=== PATIENT | female | born 1970 | race Hispanic/Latino ===

== ENCOUNTER 2016-03-27 20:18 | Emergency (ER) | payer SELFPAY ==
[~2016-03-27] VITALS: Ht 154.9 cm; Wt 63.6 kg
[~2016-03-27 20:18] MED LIST: PREN1TAB47; TYL325
[2016-03-27 20:28] VITALS: BP 115/84; PULSE 86; RESP 16; O2SAT 99
--- NOTE | 2016-03-27 22:12 | ED.REPORT ---
HPI-Headache Date of Service Mar 27, 2016 ED Provider: Gurjit Galdamez MD Patient is a 46 year old female with a history of migraines who presents to the ED complaining of a severe migraine headache which began 3 days ago. Patient reports a right-sided headache, with a throbbing burning. She states that this migraine is similar to previous migraines, however it is longer in duration. The patient is at the end of her menstrual period and states that she typically has migraines associated with her menstrual period. She reports associated nausea, dizziness, and photophobia. Patient denies numbness or weakness of her extremities. Nursing Notes Stated Complaint: HEADACHE Chief Complaint: Neuro Symptoms/ Deficits Nursing Notes Reviewed: Yes Allergies: Coded Allergies: No Known Allergies (Verified , 03/27/16) Scheduled PRN Prochlorperazine Maleate (Compazine Suppository) 25 Mg Supp.rect 25 MG RC Q8 PRN PRN For Nausea/Vomiting Sumatriptan Succinate (Imitrex) 50 Mg Tablet 50 MG PO [id number] PRN PRN migraine Miscellaneous Medications Acetaminphen-Expunged Drug, Do Not Renew! 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 Arrived By: Walk-in Sudden in Onset?: No Onset Occurred: 3 days ago Symptom Duration: Since onset Location: : Frontal right Quality: Painful Severity: Current: Severe Severity: Maximum: Severe Recent Healthcare: No recent doctor visit, No recent hospitalization Similar Sx Previous: Yes Past Medical History Past Medical History depression Reports: Migraines Past Surgical History Reports: Reports: Tubal ligation Smoking History Unknown if Ever Smoker Social History Other Social History: Good social support, Local resident Ambulatory Status Independent Review of Systems Eyes: Reports: Photophobia GI: Reports: Nausea, Denies: Vomiting Neurologic: Reports: Dizziness, Headache, Denies: Numbness, Weakness Complete sys rev & neg: except as marked. Physical Exam Initial Vital Signs Vital Signs (First) Date Time Temp Pulse Resp B/P Pulse Ox O2 Delivery O2 Flow Rate FiO2 03/27/16 20:28 36.4 86 16 115/84 99 Room Air Initial VS: Reviewed ENT: Conjunctiva normal, No scleral icterus Extremities: Vascular intact, Neuro intact Skin: Warm, Dry, No cyanosis Psychiatric: Mood/affect normal, Behavior normal, Normal thought content General/Constitutional: Awake, Alert Appearance / Presentation: Positive: Uncomfortable Head / Eyes: Normocephalic, PERRL Neck: Supple, No meningismus, Full range of motion Neurologic: Oriented X3, Speech NL, No motor deficits, No sensory deficits, CN II - XII intact, Cerebellar NL Respiratory / Chest: No respiratory distress, No stridor Cardiovascular: Heart rate NL, Regular rhythm Re-Eval/Medical Decision Med Decision/Clinical Course 46-year-old with history of migraines presents with a three-day siege of migraine. She is much improved here after standard cocktail. Her evaluation shows no evidence of significant underlying pathology, with intact neuro, and no other concerning features. She is discharged now pain free and stable condition. Source of Hx: Old records Re-Evaluation/Progress : Time of Eval: 00:30 )( Patient Status: Condition improved Re-Evaluation/Progress Note: Headache is resolved. Patient understands and agrees with the plan to be discharged home. Discharge instructions and follow-up discussed. All questions were addressed. Return to the ED warnings given. Counseled Regarding: Diagnosis, Lab results, Need for follow-up, When/why to return to ED Discharge & Departure Impression: Primary Impression: Migraine Migraine type: without aura Status migrainosus presence: with status migrainosus Intractability: not intractable Qualified Code: G43.001 - Migraine without aura, not intractable, with status migrainosus Disposition: Home Discharge Condition All VS Reviewed: Yes Condition: Stable Patient Instructions: Migraine Headache (ED) Additional Instructions: Drink plenty of clear fluids and maintain your hydration. Imitrex if needed for similar headaches in the future. Take a Compazine suppository (insert in rectum) if needed for nausea and migraine. Follow-up with your doctor in the office. Return if any immediate issues. Kylah muchos lquidos amanda y mantenga santana hidratacin. Imitrex si es necesario para julius de gideon similares en el futuro. [place] un supositorio Compazine (insertar en el recto) si es necesario para las n useas y migraas. Seguimiento con santana mdico en la oficina. Vuelva si cualquier ediciones inmediatas. Referrals: Margie Epstein (PCP) Oanh Attestation Portions of this note were transcribed by Usha Miller. I, Dr. Galdamez personally performed the history, physical exam and medical decision-making; I reviewed and confirmed the accuracy of the information in the transcribed note. Signed by: Oanh Carranza, 03/27/2016 0114 copies to: Margie Epstein Christopher W MD Mar 27, 2016 22:12 Usha Miller Mar 27, 2016 22:16
[2016-03-27] MEDS ORDERED: 0.9% Sodium Chloride 1,000 ML IV ONE (22:33)
[2016-03-27] MEDS ORDERED: Haloperidol 5 mg/mL Inj IVPUSH ONE (22:35)
[2016-03-27] MEDS ORDERED: Ondansetron 2 mg/mL 2 mL Inj IVPUSH ONE (22:35)
[2016-03-27] MEDS ORDERED: Dexamethasone 10 mg/mL Inj IVPUSH ONE (22:35)
[2016-03-28] MEDS ORDERED: SUMA50TA31 PO (00:19)
[2016-03-28] MEDS ORDERED: PROC25SU30 RC (00:21)
[2016-03-28 00:44] VITALS: BP 118/78; PULSE 86; RESP 24; O2SAT 98
== END 2016-03-28 00:45 | disposition home or self-care (01) ==
LOC: SED 20:18
DX: G43.001 Migraine without aura, not intractable, with status migrainosus (principal)
CPT/HCPCS: 96361; 96374; 96375; 99284; J1100; J1200; J1630; J2405; J7030